=== PATIENT | male | born 1960 | race American Indian/Alaskan Native ===

== ENCOUNTER 2016-12-12 10:37 | Outpatient (CLI) | payer OTHER ==
--- NOTE | 2016-12-12 15:39 | Cat Scan Report ---
CT OF THE ABDOMEN AND PELVIS WITHOUT IV CONTRAST AND WITH ORAL CONTRAST: FINDINGS: The study is limited technically by the patient's body habitus. The liver, spleen, pancreas, and gallbladder appear normal. The kidneys are normal in size and configuration with no evidence of mass or hydronephrosis. No definite renal calcifications are seen although evaluation of renal calcifications is again limited due to the body habitus. No definite calcifications are seen within the ureters. The bowel wall appears normal with no specific radiographic evidence of diverticulitis. A few scattered diverticula are seen in the sigmoid region. There is no free air. No abnormal fluid collections are seen. IMPRESSION: Minimal sigmoid diverticulosis with no evidence of diverticulitis. There are no other significant findings with technical limitations noted above.
== END 2016-12-12 10:38 | disposition home or self-care (01) ==
LOC: CT 10:37
PROVIDERS: ATTEND Internal Medicine
DX: K57.90 Diverticulosis of intestine, part unspecified, without perforation or abscess without bleeding (principal)
CPT/HCPCS: 74176